=== PATIENT | female | born 1955 | race Caucasian/White ===

== ENCOUNTER → 2016-07-13 | Outpatient (CLI) | payer OTHER | LOC: M RAD 12:07 | PROVIDERS: ATTEND Physician Assistant Medical | DX: Z53.8 Procedure and treatment not carried out for other reasons (principal) ==

== ENCOUNTER → 2016-08-03 | Outpatient (CLI) | payer OTHER | LOC: M RAD 13:05 | PROVIDERS: ATTEND Physician Assistant Medical | DX: R91.1 Solitary pulmonary nodule (principal); Z53.8 Procedure and treatment not carried out for other reasons ==

== ENCOUNTER → 2016-09-16 | Outpatient (CLI) | payer OTHER ==
--- NOTE | 2016-09-16 15:29 | REP ---
CT STUDY OF THE CHEST WITHOUT IV CONTRAST: HISTORY: Abnormal findings of the lung hernández. Solitary pulmonary nodule. No available prior CT or chest x-ray studies. CT FINDINGS: There is a lobulated nodular largely solid nodular density in the posterior segment of the left upper lobe. This measures 2.3 cm in greatest dimension x 1.2 x 1.1 cm in transverse dimension. There is an air bronchogram coursing through the lesion, which displays slight spiculation. Primary pulmonary malignancy must be suspected. No other significant pulmonary nodule is seen. There is no evidence of pleural or pericardial effusion. No hilar or mediastinal mass or adenopathy is seen. There is some vascular calcification. Mild fatty infiltration of the liver is seen diffusely. There are small cysts in the upper pole of each kidney. No adrenal mass is observed. Bone window settings show no bony destructive lesion. IMPRESSION: Suspicious 2.3 cm lobulated nodule in the posterior segment of the left upper lobe. Suspicious for primary bronchogenic malignancy. Signed by Jorge A Jimenez MD 09/16/2016 06:09 P
== END ==
LOC: M RAD 11:07
PROVIDERS: ATTEND Internal Medicine Pulmonary Disease
DX: R91.8 Other nonspecific abnormal finding of lung field (principal)

== ENCOUNTER → 2016-10-21 | Outpatient (CLI) | payer OTHER ==
[~2016-10-21] MED LIST: ISOVUE-370 76% 100ML VIAL (Q9967) As Ordered ONE
--- NOTE | 2016-10-21 12:25 | REP ---
Multiphasic CT of the abdomen for renal cysts: Right Kidney: There are multiple small renal cysts, the largest is at the upper pole measuring 2.2 cm in diameter. These cysts are all Bosniak classification type 1 cysts. Left kidney: There are multiple small cysts the largest at the lower pole measuring 2.2 cm. These are all Bosniak classification type 1 cysts. In addition, there is a 1.7 cm cyst postero laterally at the upper /mid pole containing a small mural calcification, compatible with a Bosniak classification type 2 cyst. There are no solid masses. There are no calculi. There is no hydronephrosis. The visualized lung hernández are unremarkable. The hepatic parenchyma is diffusely less dense than the spleen on all phases of the study, compatible with hepato steatosis. The gallbladder, pancreas and spleen are unremarkable. The adrenals are unremarkable. Abdominal aorta is unremarkable except for occasional calcified atheroma. The visualized bowel and mesentery are unremarkable. Scanning is performed for diaphragms to the iliac crests on all sequences. Study is initially performed without IV contrast. This is followed by IV contrast scanning initially during the arterial phase of enhancement followed by scanning during the portal venous phase of enhancement and later during the delayed equilibrium phase of enhancement. There is no bowel contrast. Impression: Multiple bilateral renal cortical cysts. There are all Bosniak type 1 cysts except for one cyst containing mural calcification, therefore, Bosniak type 2 cyst. There is no hydronephrosis. There are no masses or calculi. There is grade 1 compression deformity of the superior endplates of the approximate T11 and L1 vertebral bodies. These are likely insufficiency fractures. Signed by Forest Kee MD 10/21/2016 12:16 P
== END ==
LOC: M RAD 10:55
PROVIDERS: ATTEND Urology
DX: N28.1 Cyst of kidney, acquired (principal)

== ENCOUNTER → 2023-02-09 | Outpatient (CLI) | payer MEDICARE | LOC: M PLAIMG 10:15 | PROVIDERS: ATTEND Registered Nurse | DX: Z53.9 Procedure and treatment not carried out, unspecified reason (principal) ==

== ENCOUNTER 2023-09-06 08:08 | Day surgery (SDC) | payer MEDICARE ==
[~2023-09-06] VITALS: Ht 160 cm; Wt 84.5 kg
[~2023-09-06 08:08] MED LIST changes: +ALPR0.25 PO; +AMLO1TAB25 PO; +FURO40TA2 PO; -ISOVUE-370 76% 100ML VIAL (Q9967) As Ordered ONE; +LISI40TA4 PO; +METO100T5 PO; +PANT40TA29 PO; +TRAM50TA2 PO
[2023-09-06] MEDS ORDERED: CIPR500T39 PO (08:57)
[2023-09-06] MEDS: LR 1,000 ML IV SCH (09:03)
[2023-09-06] MEDS: ceFAZolin SOD 2 GM in IV 1 EA IV ONE (10:33)
[2023-09-06] MEDS ORDERED: LIDOCAINE 2% INJ 100 MG/5 ML SYRINGE As Ordered ONE (10:47)
[2023-09-06] MEDS ORDERED: fentaNYL 100 MCG/2 ML INJECTION As Ordered ONE (10:47)
[2023-09-06] MEDS ORDERED: propofoL 200 MG/20 ML VIAL As Ordered ONE (10:47)
[2023-09-06] MEDS ORDERED: OXYB5TAB14 PO (11:02)
[2023-09-06] MEDS ORDERED: MIDAZOLAM INJ 2MG/2ML VIAL As Ordered ONE (11:19)
[2023-09-06] MEDS ORDERED: ONDANSETRON 4MG 2ML VIAL As Ordered ONE (11:42)
[2023-09-06] MEDS: ISOVUE-300 61% 100ML VIAL As Ordered ONE (11:50)
[2023-09-06] MEDS ORDERED: GLYCOPYRROLATE INJ 0.2 MG/ML 2 ML VIAL As Ordered ONE (11:54)
[2023-09-06] MEDS ORDERED: LR 1,000 ML IV SCH (12:00)
[2023-09-06] MEDS ORDERED: fentaNYL 100 MCG/2 ML INJECTION IV PRN (12:00)
[2023-09-06] MEDS ORDERED: ONDANSETRON 4MG 2ML VIAL IV PRN (12:00)
[2023-09-06] MEDS ORDERED: oxyCODONE 5MG TAB PO PRN (12:00)
[2023-09-06] MEDS ORDERED: PERCOCET 5MG/325MG TAB PO PRN (12:20)
[2023-09-06] MEDS ORDERED: oxyBUTYnin 5 MG TAB PO PRN (12:20)
[2023-09-06 13:10] VITALS: BP 132/62; TEMP 97.2; O2SAT 96
== END 2023-09-06 13:21 | disposition home or self-care (01) ==
LOC: M SDC 08:08
PROVIDERS: ATTEND Urology
DX: N13.2 Hydronephrosis with renal and ureteral calculous obstruction (principal); I10 Essential (primary) hypertension; E78.00 Pure hypercholesterolemia, unspecified; Z79.899 Other long term (current) drug therapy; Z90.710 Acquired absence of both cervix and uterus; F17.210 Nicotine dependence, cigarettes, uncomplicated; Z88.8 Allergy status to other drugs, medicaments and biological substances; Z88.0 Allergy status to penicillin; Z88.6 Allergy status to analgesic agent
CPT/HCPCS: 52356; 76000; 82365; C1769; C2617; J0690; J1100; J2250; J2405; J3010; Q9967

== ENCOUNTER → 2024-01-11 | Outpatient (CLI) | payer MEDICARE ==
[~2024-01-11] MED LIST changes: +CIPR500T39 PO; +ISOVUE-370 76% 100ML VIAL As Ordered ONE; +OXYB5TAB14 PO
== END ==
LOC: M RAD 13:21
PROVIDERS: ATTEND Registered Nurse
DX: R91.1 Solitary pulmonary nodule (principal); N28.9 Disorder of kidney and ureter, unspecified
CPT/HCPCS: 71260; Q9967

== ENCOUNTER → 2024-03-11 | Outpatient (CLI) | payer MEDICARE ==
[~2024-03-11] MED LIST changes: -ISOVUE-370 76% 100ML VIAL As Ordered ONE
== END ==
LOC: M PLARAD 10:35
PROVIDERS: ATTEND Internal Medicine Pulmonary Disease
DX: Z53.9 Procedure and treatment not carried out, unspecified reason (principal)

== ENCOUNTER → 2024-05-20 | Outpatient (CLI) | payer MEDICARE | LOC: M PLARAD 11:51 | PROVIDERS: ATTEND Internal Medicine Pulmonary Disease | DX: Z53.9 Procedure and treatment not carried out, unspecified reason (principal) ==

== ENCOUNTER → 2024-07-12 | Outpatient (CLI) | payer MEDICARE | LOC: M RAD 13:41 | PROVIDERS: ATTEND Internal Medicine Pulmonary Disease | DX: R91.8 Other nonspecific abnormal finding of lung field (principal) ==

== ENCOUNTER → 2025-01-30 | Outpatient (CLI) | payer MEDICARE ==
[~2025-01-30] MED LIST changes: +ACET-907 PO; +ALBU8.5H INH; +FLUTISP; +LISI40TA10 PO; -LISI40TA4 PO; +METH-1164 PO
== END ==
LOC: M RAD 13:25
PROVIDERS: ATTEND Internal Medicine Pulmonary Disease
DX: R91.8 Other nonspecific abnormal finding of lung field (principal)

== ENCOUNTER → 2025-02-13 | Outpatient (CLI) | payer MEDICARE | LOC: M RAD 11:56 | PROVIDERS: ATTEND Nurse Practitioner Family | DX: E04.2 Nontoxic multinodular goiter (principal) ==

== ENCOUNTER → 2025-03-10 | Outpatient (CLI) | payer MEDICARE | LOC: M PLAIMG 12:43 | PROVIDERS: ATTEND Internal Medicine Pulmonary Disease | DX: R91.8 Other nonspecific abnormal finding of lung field (principal) ==